=== PATIENT | male | born 1965 | race Two or more races ===

== ENCOUNTER 2016-05-26 21:17 | Emergency (ER) | payer SELFPAY ==
[~2016-05-26] VITALS: Ht 172.7 cm; Wt 90.7 kg
[2016-05-26] MEDS ORDERED: ACETAMINOPHEN 325 MG TABLET PO ONE (21:30)
[2016-05-26] MEDS ORDERED: ACETAMINOPHEN 325 MG TABLET ONE (21:40)
[2016-05-26 23:09] VITALS: BP 130/80
== END 2016-05-26 23:09 | disposition home or self-care (01) ==
LOC: ER 21:20
DX: S20.211A Contusion of right front wall of thorax, initial encounter (principal); V29.69XA Unspecified motorcycle rider injured in collision with other motor vehicles in traffic accident, initial encounter; Y93.89 Activity, other specified; Y92.89 Other specified places as the place of occurrence of the external cause; Y99.9 Unspecified external cause status
CPT/HCPCS: 71010; 93005; 99284; A4606; Z7610